=== PATIENT | male | born 1970 | race Caucasian/White ===

== ENCOUNTER 2021-03-08 18:22 | Emergency (ER) | payer OTHER, SELFPAY ==
[2021-03-08 18:42] VITALS: BP 183/84; PULSE 79; RESP 16; TEMP 36.7; O2SAT 98
[2021-03-08 19:52] VITALS: BP 179/86; PULSE 85; RESP 16; TEMP 36.4; O2SAT 98
[2021-03-08 20:06] VITALS: BP 178/80; PULSE 73; RESP 20; O2SAT 98
--- NOTE | 2021-03-08 20:19 | ED.GENADULT ---
HPI - General Adult General Chief complaint: Unspecified Stated complaint: Bleeding around dialysis port site Time Seen by Provider: 03/08/21 20:00 Source: patient History of Present Illness HPI narrative: Patient is a 50 y/o complaining of bleeding right side dialysis catheter. He states that he had tunneled right IJ catheter placed at [facility] around 3:00 PM today. He noticed it was bleeding after he got home around 5:00 PM. He also has some pain at the site. He has been on dialysis for 5 years for ESRD. Related Data Home Medications Medication Instructions Recorded Confirmed albuterol sulfate 90 mcg/actuation 1 inhalation INHALATION Q4H 08/06/19 aerosol inhaler insulin lispro 100 unit/mL 1 sliding scale dose SUB-Q 08/06/19 subcutaneous solution USEASDIRECTD ipratropium 0.5 mg-albuterol 3 mg 3 ml INHALATION QID PRN 08/06/19 (2.5 mg base)/3 mL nebulization soln lidocaine 3 % topical cream 1 applic TOPICAL BID PRN 08/06/19 pravastatin 10 mg tablet 10 mg PO DAILY 08/06/19 amlodipine 10 mg tablet 10 mg PO DAILY 08/07/19 lisinopril 10 mg tablet 20 mg PO DAILY tablet 08/07/19 Allergies Allergy/AdvReac Type Severity Reaction Status Date / Time No Known Allergies Allergy Unverified 12/04/19 08:12 Review of Systems Constitutional: Constitutional: Denies chills, Denies fever(s), Denies headache(s) and Denies weakness Eyes: Eyes: Denies blurry vision ENT: Denies headache(s) and Denies neck pain Cardiovascular: Cardiovascular: Denies chest pain and Denies dyspnea Respiratory: Respiratory: Denies cough and Denies dyspnea Gastrointestinal: Gastrointestinal: Denies abdominal pain, Denies diarrhea, Denies nausea and Denies vomiting Genitourinary: Genitourinary: Denies hematuria and Denies dysuria Musculoskeletal: Musculoskeletal: Denies back pain and Denies neck pain Integumentary/Breasts: Skin/Breast: Reports as per HPI and Reports other (bleeding from right side dialysis catheter site) Neurologic: Denies headache(s) and Denies weakness [facility] Past Medical History Medical History (Updated 03/14/21 @ 07:26 by Virgie Calzada MD) Chronic respiratory failure, unspecified whether with hypoxia or hypercapnia COPD (chronic obstructive pulmonary disease) Nocturnal hypoxemia Tracheostomy in place Family History Family History (System 12/04/19 @ 08:12 by Del Wolfe) Father Family history of chronic obstructive pulmonary disease Other Hypertension Social History Social History (System 12/04/19 @ 08:12 by Del Wolfe) Smoking status: Never smoker Exam Const: General: no acute distress and well developed Orientation/consciousness: oriented to person, oriented to place, oriented to time and patient oriented x3 HENMT: Head: normocephalic Ears: external ears normal General nose exam: Normal external nose present Eyes: General: appearance normal, both eyes and all related structures Conjunctivae: conjunctivae normal Neck: Neck: normal visual inspection and full ROM Chest: Chest palpation & inspection: normal inspection of the chest and no tenderness Resp: Effort & Inspection: normal respiratory effort Auscultation: clear to auscultation bilaterally Cardio: Rate: regular rate Rhythm: regular rhythm GI: GI Palp: No abdominal tenderness and Yes Soft to palpation Skin: General skin exam: normal color and turgor normal Other: Tunneled right IJ dialysis catheter in place with some bleeding from around catheter. Neuro: General: oriented to person, oriented to place, oriented to time and patient oriented x3 Cognition (Neuro): normal cognition Extrem: General: normal to inspection, full ROM and no pedal edema Psych: Appearance: grossly normal Mental Status: mental status grossly normal Affect: normal affect Course Reevaluation(s) Reevaluation #1: Pressure was applied to dialysis catheter site. Dressing was applied. Recheck shows no active bleeding. Date:
[2021-03-08 21:25] VITALS: BP 137/73; PULSE 88; RESP 18; O2SAT 99
== END 2021-03-08 21:27 | disposition home or self-care (01) ==
PROVIDERS: Emergency Provider Emergency Medicine; PCP Internal Medicine
DX: T82.838A Hemorrhage due to vascular prosthetic devices, implants and grafts, initial encounter (principal); J96.10 Chronic respiratory failure, unspecified whether with hypoxia or hypercapnia; J44.9 Chronic obstructive pulmonary disease, unspecified; Z79.4 Long term (current) use of insulin; Z99.2 Dependence on renal dialysis
CPT/HCPCS: 99282

== ENCOUNTER 2023-04-01 12:59 | Emergency (ER) | payer OTHER, SELFPAY ==
--- NOTE | ~2023-04-01 | XR_ITS ---
EXAMINATION: XR shoulder LT min 2V DATE: 04/01/2023 14:49 INDICATION: Severe nontraumatic left shoulder pain TECHNIQUE: AP internally and externally rotated, AP oblique externally rotated and transscapular Y vi ews of the left shoulder were obtained. COMPARISON: None FINDINGS: Normal alignment. No fracture.Acromioclavicular osteoarthritis. There is widening of the cephalad as pect of the glenohumeral joint which could be due to either the presence of a joint effusion or weakn ess or paralysis of some of the musculature of the shoulder girdle. Small lucency projecting over the soft tissues lateral to the proximal neck of the humerus raising concern for soft tissue gas in the setting of infection or necrotizing fasciitis. Surgical clips at the left axilla. Tracheostomy tube a t the thoracic inlet. Left subclavian vascular stent. Visualized portion of the left lung is clear. IMPRESSION: Slight caudal subluxation of the humeral head with respect to the glenoid with widening of the cephal ad aspect of the joint space which along with a small focus of lucent likely subcutaneous gas raises concern for infection and joint effusion and could exclude necrotizing fasciitis. Dr. Morales discus sed these findings with Dr. Lyle at 3:00 PM. Reviewed, dictated and finalized at location A. IMPRESSION: Slight caudal subluxation of the humeral head with respect to the glenoid with widening of the cephalad aspect of the joint space which along with a small foc us of lucent likely subcutaneous gas raises concern for infection and joint eff usion and could exclude necrotizing fasciitis. Dr. Morales discussed these fin dings with Dr. Lyle at 3:00 PM.
--- NOTE | ~2023-04-01 | CT_ITS ---
EXAMINATION: CT shoulder LT wo con DATE: 04/01/2023 16:17 INDICATION: Left shoulder pain and abnormal radiographs TECHNIQUE: High resolution computed tomography (CT) of the left shoulder was performed without intrav enous contrast. Additional sagittal and coronal reconstructions were performed. Automated exposure co ntrol and iterative reconstruction technique were employed. The dose-length product was 386.82 mGy-cm . COMPARISON: None FINDINGS: Moderate-sized glenohumeral joint effusion resulting in mild widening of the cephalad aspect of the g lenohumeral joint space. Bone alignment is otherwise normal. No fracture. Mild to moderate osteoarthr itis with subarticular cystlike changes at the left acromioclavicular joint. Small regions of discoid atelectasis in the left upper and lower lobes. Branching pattern of calcification suggesting a chron ic calcified bronchocele in the superior segment of the left lower lobe. Heterogeneous left thyroid m ass measuring up to 2.8 cm in diameter. Stenting of a vein in the left superior clavicular fossa. No evident soft tissue. There is a tiny intramuscular lipoma within the posterior deltoid muscle belly w hich may account for the focal lucency identified on the prior radiographs. IMPRESSION: 1. Nonspecific moderate-sized left glenohumeral joint effusion. 2. No soft tissue gas to suggest necrotizing fasciitis. The tiny lucency seen on prior radiographs ma y result from intramuscular lipoma within the posterior deltoid muscle. Reviewed, dictated and finalized at location A. IMPRESSION: 1. Nonspecific moderate-sized left glenohumeral joint effusion. 2. No soft tissue gas to suggest necrotizing fasciitis. The tiny lucency seen o n prior radiographs may result from intramuscular lipoma within the posterior d eltoid muscle.
--- NOTE | ~2023-04-01 | US_ITS ---
EXAMINATION: US venous doppler [facility] DATE: 04/01/2023 16:21 INDICATION: Left upper extremity pain TECHNIQUE: Grayscale images without and with compression and Doppler images of the left upper extremi ty veins were obtained. COMPARISON: None. FINDINGS: The left internal jugular vein, subclavian vein, axillary vein, brachial vein, basilic vein, cephalic vein, radial vein, and ulnar vein are patent. The right internal jugular and subclavian veins are al so visualized and are patent. IMPRESSION: 1. Patent left upper extremity veins. No evidence of venous thrombosis. Reviewed, dictated and finalized at location A.
[2023-04-01 13:05] VITALS: BP 137/84; PULSE 88; RESP 17; TEMP 36.4; O2SAT 99
[2023-04-01] MEDS: HYDROmorphone HCL INJ (*CRX) 1 MG/ML SYR IM (14:12)
[2023-04-01] MEDS: ONDANSETRON HCL ODT 4 MG TABLET PO (14:12)
[2023-04-01 14:14] VITALS: BP 153/93; PULSE 89; RESP 18; O2SAT 99
[2023-04-01 14:32] LABS: Basophils Absolute Auto 0.1 K/mm3 (0.0-0.1); Eosinophils Absolute Auto 0.2 K/mm3 (0-0.3); Eosinophils Percent Auto 1.4 % (0-4.4); Hematocrit 34.4 % (42.0-52.0); Hemoglobin 10.8 g/dL (14.0-18.0); Immature Granulocyte Absolute 0.15 K/mm3 (0.00-0.031); Immature Granulocyte Percent A 1.2 % (0-0.5); Lymphocytes Absolute Auto 1.18 K/mm3 (0.9-3.2); Lymphocytes Percent Auto 9.4 % (18.3-44.2); Mean Corpuscular HGB Conc 31.4 g/dl (32-36); Mean Corpuscular Hemoglobin 30.4 pg (26-34); Mean Corpuscular Volume 96.9 fl (80-100); Mean Platelet Volume 9.2 fl (7.4-10.4); Neutrophils Absolute Auto 8.9 K/mm3 (1.3-6.7); Platelet Count Result 426 k/mm3 (150-375); Red Blood Count 3.55 M/mm3 (4.6-6.20); Red Cell Distribution Width 16.7 % (11.5-14.5); White Blood Count 12.6 K/mm3 (4.5-10.0)
[2023-04-01 14:36] LABS: Prothrombin Time 13.9 Seconds (11.1-14.7)
[2023-04-01 14:37] LABS: Partial Thromboplastin Time 35.6 SECONDS (22.3-36.8)
[2023-04-01 14:46] LABS: Alanine Aminotransferase 23 U/L (6-50); Albumin Level 4.3 g/dL (3.5-5.1); Alkaline Phosphatase 186 U/L (38-126); Anion Gap 19 mmol/L (8-16); Aspartate Amino Transferase 28 U/L (17-59); Bilirubin,Total 0.7 mg/dL (0.2-1.3); Blood Urea Nitrogen 96 mg/dL (9-20); Calcium 9.3 mg/dL (8.4-10.2); Carbon Dioxide 22 mmol/L (22-30); Chloride 90 mmol/L (98-107); Estimated CRCL calculation 3 ml/min; Estimated Glomerular Filt Rate 3; Glucose 159 mg/dL (65-110); Potassium 4.3 mmol/L (3.4-5.0); Sodium 131 mmol/L (137-145)
--- NOTE | 2023-04-01 17:40 | ED.EXTPRO ---
HPI - Extremity Problem General Chief complaint: Extremity Problem,Nontraumatic Stated complaint: left sided neck and shoulder pain Time Seen by Provider: 04/01/23 13:45 Source: patient, RN notes reviewed and old records reviewed Mode of arrival: ambulatory Limitations: no limitations History of Present Illness HPI Narrative: This is a 52 year old male with history of chronic renal disease on dialysis, DM, tracheostomy in place who presents for evaluation of left shoulder pain. He noticed pain 1 week ago. He reports pain to left shoulder and radiating down to his elbow. He also also noticed pain at old left upper extremity dialysis site. He has been trying to physical therapy at home. He states today he was unable to lift his left shoulder due to pain. He denies fever, chills, injury. He reports history of left shoulder issues. He took an old oxycodone prior to arrival without relief. MD Complaint: extremity pain Onset (ago): week(s) Pain Consistency: constant Location: left and upper extremity Severity scale (1-10): 9 Relieving factors: medication Exacerbating factors: range of motion Related Data Home Medications Medication Instructions Recorded Confirmed albuterol sulfate 90 mcg/actuation 1 inhalation inhalation Q4H 08/06/19 02/15/22 aerosol inhaler (ProAir HFA) insulin lispro 100 unit/mL 1 sliding scale dose subcut 08/06/19 02/15/22 subcutaneous solution (Humalog USEASDIRECTD U-100 Insulin) pravastatin 10 mg tablet 10 mg PO DAILY 08/06/19 02/15/22 amlodipine 10 mg tablet 10 mg PO DAILY 08/07/19 02/15/22 furosemide 20 mg tablet 10 mg PO QAM 11/22/21 02/15/22 subcutaneous insulin pump 11/22/21 02/15/22 blood-glucose meter,continuous #1 ea 01/30/22 02/15/22 (Dexcom G6 Anesthesiology Medical Doctor) blood-glucose transmitter (Dexcom #1 ea 01/30/22 02/15/22 G6 Transmitter device) gentamicin 0.1 % topical cream g topical 01/30/22 02/15/22 Allergies Allergy/AdvReac Type Severity Reaction Status Date / Time amoxicillin [From Augmentin] Allergy Swelling Verified 04/01/23 14:11 azithromycin Allergy Swelling Verified 04/01/23 14:11 clavulanic acid Allergy Swelling Verified 04/01/23 14:11 [From Augmentin] Review of Systems Constitutional: Constitutional: Denies weakness Cardiovascular: Cardiovascular: Denies syncope, Denies rapid heart rate, Denies irregular heart rhythm, Denies leg edema and Denies dyspnea Respiratory: Respiratory: Denies chest congestion, Denies hemoptysis, Denies excessive phlegm production and Denies dyspnea Gastrointestinal: Gastrointestinal: Denies abdominal pain, Denies hematochezia, Denies diarrhea and Denies vomiting Genitourinary: Genitourinary: Denies hematuria, Denies dysuria, Denies penile discharge and Denies testicular pain Musculoskeletal: Musculoskeletal: Reports arthralgias, Denies joint swelling, Denies loss of height and Denies muscle weakness Neurologic: Denies syncope, Denies focal weakness and Denies weakness PMFSH Past Medical History Medical History (Updated 04/01/23 @ 21:27 by Lauren Lyle MD) Chronic respiratory failure, unspecified whether with hypoxia or hypercapnia COPD (chronic obstructive pulmonary disease) ESRD on dialysis Nocturnal hypoxemia Surgical History Surgical History (Updated 04/01/23 @ 17:44 by Lauren Lyle MD) Tracheostomy in place Family History Family History Father Family history of chronic obstructive pulmonary disease Other Hypertension Social History Social History Smoking status: Never smoker Alcohol intake: never Substance use: never Exam Const: General: no acute distress and alert Nutritional Appearance: well nourished Orientation/consciousness: patient oriented x3 HENMT: Head: normal to inspection Mouth: Yes Normal oral and palatal mucosa present, Yes lip normal and Yes moist muco
[2023-04-01 18:09] LABS: CRP 14.5 mg/dL (<1.0)
[2023-04-01 18:24] LABS: Erythrocyte Sedimentation Rate > 140 mm/hr (0-20)
[2023-04-01 18:44] VITALS: BP 139/78; PULSE 86; RESP 16; TEMP 36.9; O2SAT 100
[2023-04-01 21:08] LABS: Source Synovial Fluid Synovial fluid
[2023-04-01 21:16] LABS: Appearance Synovial Fluid Cloudy (Clear); Color Synovial Fluid Red (Colorless)
[2023-04-01 21:17] LABS: Lymphocytes Synovial Fluid 1 %; Monocytes Synovial Fluid 3 %; Neutrophils Synovial Fluid 96 % (0-25); RBC Synovial Fluid 20000 /uL (0-0)
[2023-04-01 21:22] LABS: Crystals Synovial Fluid None Seen (None Seen)
[2023-04-05 20:29] LABS: Glucose Synovial Fluid 27 mg/dL
== END 2023-04-01 19:53 | disposition home or self-care (01) ==
PROVIDERS: Emergency Provider General Practice
DX: M25.412 Effusion, left shoulder (principal); J44.9 Chronic obstructive pulmonary disease, unspecified; N18.6 End stage renal disease; Z99.2 Dependence on renal dialysis
CPT/HCPCS: 20610; 36415; 73030; 73200; 80053; 82945; 84157; 85025; 85610; 85652; 85730; 86140; 87070; 87075; 87205; 89051; 89060; 93971; 96372; 99283; A4565; A9270; J1170

== ENCOUNTER 2023-05-09 13:55 | Outpatient (CLI) | payer OTHER, SELFPAY ==
--- NOTE | ~2023-05-09 | CT_ITS ---
EXAMINATION: CT sinus wo con DATE: 05/09/2023 14:12 INDICATION: Chronic sinusitis TECHNIQUE: Computed tomography (CT) of the paranasal sinuses was performed without intravenous contra st. The dose-length product was 286.08 mGy-cm. Automated exposure control and iterative reconstructio n technique were employed. COMPARISON: None FINDINGS: Rightward nasal septal deviation. No significant mucosal thickening. No mucoperiosteal reac tion. Ostiomeatal units are patent. Mastoids are pneumatized. IMPRESSION: 1. No significant sinus disease. Reviewed, dictated and finalized at location B. ICAL ACCOUNT MANAGER
== END 2023-05-09 13:56 | disposition home or self-care (01) ==
PROVIDERS: Visit Provider Otolaryngology
DX: J32.9 Chronic sinusitis, unspecified (principal)
CPT/HCPCS: 70486

== ENCOUNTER 2023-06-16 10:47 | Inpatient (IN) | payer OTHER, SELFPAY ==
[2023-06-16] VITALS (30 sets, daily range): BP systolic 134–148; BP diastolic 72–87; PULSE 85–105; RESP 12–37; TEMP 36.4–36.6; O2SAT 88–100; BMI 20.2
--- NOTE | ~2023-06-16 | XR_ITS ---
EXAMINATION: XR chest 1V portable DATE: 06/16/2023 12:33 INDICATION: Shortness of breath. TECHNIQUE: A single frontal view of the chest was obtained. COMPARISON: Chest 2 views 11/06/2017, left shoulder CT 04/01/2023, chest CT 10/04/2017 FINDINGS: There are coarse interstitial opacities in the mid and lower lung zones, left worse than ri ght. No pleural effusion or pneumothorax. The heart size is normal. A tracheostomy tube is noted. A v ascular stent overlies left upper chest. There are surgical clips in left axilla. There is an old hea led left rib fracture. A gastrostomy tube is noted. IMPRESSION: 1. Coarse interstitial opacities in the mid and lower lung zones, left worse than right, consistent w ith atelectasis/scarring versus pneumonia. Reviewed, dictated and finalized at location A. T BUYER IMPRESSION: 1. Coarse interstitial opacities in the mid and lower lung zones, left worse th an right, consistent with atelectasis/scarring versus pneumonia.
--- NOTE | 2023-06-16 11:55 | ED.GENADULT ---
HPI - General Adult General Chief complaint: Shortness of Breath/Dyspnea Stated complaint: uri Time Seen by Provider: 06/16/23 11:43 History of Present Illness HPI narrative: 53-year-old male presenting to the emergency department for evaluation of increased cough congestion and shortness of breath. Patient noticed on Sunday that he was having increased shortness of breath and patient checked his pulse ox and his mother's house and found he had a oxygen saturation of 81%. Patient is not normally on oxygen. Patient does have a trach that has been in place for the last 5 years. She does do trach suction and patient states he has had increased clearish to greenish tinged sputum. Patient denies any fevers and states he does not feel ill but states that he does feels short of breath with ambulation. Patient's trach is capped. Related Data Home Medications Medication Instructions Recorded Confirmed albuterol sulfate 90 mcg/actuation 1 inhalation inhalation Q4H 08/06/19 06/16/23 aerosol inhaler (ProAir HFA) insulin lispro 100 unit/mL 1 sliding scale dose subcut 08/06/19 06/16/23 subcutaneous solution (Humalog USEASDIRECTD U-100 Insulin) pravastatin 10 mg tablet 10 mg PO DAILY 08/06/19 06/16/23 amlodipine 10 mg tablet 10 mg PO DAILY 08/07/19 06/16/23 subcutaneous insulin pump 11/22/21 06/16/23 blood-glucose meter,continuous #1 ea 01/30/22 06/16/23 (Dexcom G6 Dough Maker) blood-glucose transmitter (Dexcom #1 ea 01/30/22 06/16/23 G6 Transmitter device) amlodipine 5 mg tablet 5 mg PO DAILY 06/16/23 06/16/23 calcitriol 0.25 mcg capsule 0.25 mcg PO DIRECTED 06/16/23 06/16/23 fluconazole 150 mg tablet 150 mg PO DIRECTED 06/16/23 06/16/23 fluticasone propionate 50 See Rx Instructions .Route 06/16/23 06/16/23 mcg/actuation nasal .COMPLEX PRN Congestion spray,suspension furosemide 80 mg tablet 80 mg PO BID 06/16/23 06/16/23 lactulose 10 gram/15 mL oral 15 ml PO PRN constipation 06/16/23 06/16/23 solution sevelamer carbonate 800 mg tablet 800 mg PO TIDWM 06/16/23 06/16/23 Allergies Allergy/AdvReac Type Severity Reaction Status Date / Time levofloxacin [From Levaquin] Allergy Severe jerking Verified 06/16/23 10:55 motions amoxicillin [From Augmentin] Allergy Swelling Verified 06/16/23 10:55 azithromycin Allergy Swelling Verified 06/16/23 10:55 clavulanic acid Allergy Swelling Verified 06/16/23 10:55 [From Augmentin] doxycycline AdvReac Severe Vomiting Verified 06/16/23 13:03 Review of Systems Review of Systems: All systems reviewed & are unremarkable except as noted in HPI and below PMFSH Past Medical History Medical History Chronic obstructive pulmonary disease Chronic respiratory failure, unspecified whether with hypoxia or hypercapnia End stage renal disease on dialysis Hypertension Nocturnal hypoxemia Tracheobronchomalacia Type 1 diabetes mellitus Surgical History Surgical History History of bilateral cataract extraction History of tracheostomy Status post creation of arteriovenous fistula Family History Family History Father Family history of chronic obstructive pulmonary disease Other Hypertension Social History Social History Social History: Surrogate medical decision maker: Rowena Mendoza, mother. Code status: Full code. Smoking status: Never smoker Alcohol intake: never Substance use: never Do You Feel Safe in your Home?: Yes Lack of Transportation: No Lack of Food: Never True Current Housing: I Have Housing Concerned About Future Housing: No Difficulty Paying Gas/Electric Bills: No Difficulty Paying for Meds: No Currently Unemployed: No Education: High School Diploma/GED Difficulty w/ Childcare or Family C
[2023-06-16] MEDS: ALBUTEROL SULFATE NEB 2.5 MG/3 ML INH 5 MG INHALATION (12:01)
--- NOTE | 2023-06-16 12:03 | PC.NURSE ---
RT at bedside suctioning pt's trach. Thick, cream-colored output with suctioning. Pt on 3L NC, chronic bivona trach. Pt has expiratory wheezing and coarse lung sounds. Plan for breathing treatment, x-ray, labs. Pt updated on POC.
[2023-06-16 12:24] LABS: Basophils Absolute Auto 0.1 K/mm3 (0.0-0.1); Basophils Percent Auto 0.5 % (0.2-1.2); Eosinophils Absolute Auto 0.2 K/mm3 (0-0.3); Eosinophils Percent Auto 0.7 % (0-4.4); Hematocrit 35.3 % (42.0-52.0); Hemoglobin 10.7 g/dL (14.0-18.0); Immature Granulocyte Absolute 0.35 K/mm3 (0.00-0.031); Immature Granulocyte Percent A 1.4 % (0-0.5); Lymphocytes Absolute Auto 1.07 K/mm3 (0.9-3.2); Lymphocytes Percent Auto 4.4 % (18.3-44.2); Mean Corpuscular HGB Conc 30.3 g/dl (32-36); Mean Corpuscular Hemoglobin 31.4 pg (26-34); Mean Corpuscular Volume 103.5 fl (80-100); Mean Platelet Volume 8.6 fl (7.4-10.4); Monocytes Absolute Auto 1.5 K/mm3 (0.1-0.6); Monocytes Percent Auto 6.3 % (2.6-8.5); Neutrophils Percent Auto 86.7 % (45.5-73.1); Platelet Count Result 514 k/mm3 (150-375); Red Blood Count 3.41 M/mm3 (4.6-6.20); Red Cell Distribution Width 14.4 % (11.5-14.5); White Blood Count 24.2 K/mm3 (4.5-10.0)
[2023-06-16 12:37] LABS: Alanine Aminotransferase 23 U/L (6-50); Albumin Level 4.2 g/dL (3.5-5.1); Alkaline Phosphatase 208 U/L (38-126); Anion Gap 21 mmol/L (8-16); Aspartate Amino Transferase 28 U/L (17-59); Blood Urea Nitrogen 66 mg/dL (9-20); Calcium 9.2 mg/dL (8.4-10.2); Carbon Dioxide 24 mmol/L (22-30); Chloride 93 mmol/L (98-107); Glucose 179 mg/dL (65-110); Potassium 3.6 mmol/L (3.4-5.0); Sodium 138 mmol/L (137-145)
[2023-06-16 12:40] LABS: Influenza A QL RT-PCR Negative (Negative); Influenza B QL RT-PCR Negative (Negative); RSV RNA, RT-PCR Negative (Negative); SARS-CoV-2 RNA PCR Negative (Negative)
[2023-06-16 12:43] LABS: Estimated CRCL calculation 3 ml/min; Estimated Glomerular Filt Rate 3
[2023-06-16] MEDS: MEROPENEM 1 GM/NS 100 ML 1 GM/100 ML BAG IVPB ×2 (14:24→17:50)
[2023-06-16 14:29] LABS: MRSA (PCR) NOT DETECTED (NOT DETECTE)
--- NOTE | 2023-06-16 14:38 | PM.IMHP ---
H&P: HPI History of Present Illness Date/Time: 06/16/23 15:00 Chief Complaint: Shortness of breath and green drainage from tracheostomy. Narrative: This is a 53-year-old male with tracheobronchomalacia with chronic tracheostomy, questionable chronic obstructive pulmonary disease (patient unsure if he carries this diagnosis, he is a never smoker), type 1 diabetes mellitus, end stage renal disease on peritoneal dialysis, hypertension, hyperlipidemia, and chronic anemia who presented to the emergency department for evaluation of shortness of breath and green drainage from tracheostomy. The patient provides the following history. He has a chronic cough and tracheostomy output although both of them have been worse in the several days. He is now suctioning large amounts thick yellow sputum from his tracheostomy and he endorses increasing dyspnea on lesser and lesser exertion. He has nebulizers at home which he has not used for 6 years but he finally had to breakdown and use them due to the shortness of breath and wheezing. His appetite has been down. He also denies fever, chills, sweats, sore throat, chest pain, pleuritic pain, palpitations, nausea, vomiting, and diarrhea. This morning he checked his pulse ox at his mother's house and he reports that his oxygen saturation was 81% on room air and he came in for evaluation. In the ED: He was afebrile on arrival. SpO2 is currently in the mid 90s on 3 L nasal cannula. Vital signs have been stable. Labs were significant for a WBC count of 24.2, hemoglobin 10.7, platelet 514, BUN 66, creatinine 16.50, glucose 179. He tested negative for influenza, RSV, and COVID. Chest x-ray showed coarse interstitial opacities in the mid and lower lung zones, left greater than right, consistent with atelectasis/scarring versus pneumonia. He was given albuterol nebulizer, 1 g meropenem, and 750 mg vancomycin he is being admitted in this setting for further treatment. Review of Systems Review of Systems: Twelve systems were reviewed and are negative except for as per HPI. [facility] Past Medical History Medical History Chronic obstructive pulmonary disease Chronic respiratory failure, unspecified whether with hypoxia or hypercapnia End stage renal disease on dialysis Hypertension Nocturnal hypoxemia Tracheobronchomalacia Type 1 diabetes mellitus Surgical History Surgical History History of bilateral cataract extraction History of tracheostomy Status post creation of arteriovenous fistula Family History Family History Father Family history of chronic obstructive pulmonary disease Other Hypertension Social History Social History Social History: Surrogate medical decision maker: Rowena Mendoza, mother. Code status: Full code. Smoking status: Never smoker Alcohol intake: never Substance use: never Lack of Transportation: No Lack of Food: Never True Current Housing: I Have Housing Concerned About Future Housing: No Difficulty Paying Gas/Electric Bills: No Difficulty Paying for Meds: No Currently Unemployed: No Education: High School Diploma/GED Difficulty w/ Childcare or Family Care: No Additional living arrangements comments: . Has 4 children. Meds Home Medications and Allergies Home Medications Medication Instructions Recorded Confirmed Type albuterol sulfate 90 mcg/actuation 1 inhalation inhalation Q4H 08/06/19 05/02/23 History aerosol inhaler (ProAir HFA) insulin lispro 100 unit/mL 1 sliding scale dose subcut 08/06/19 05/02/23 History subcutaneous solution (Humalog USEASDIRECTD U-100 Insulin) pravastatin 10 mg tablet 10 mg PO DAILY 08/06/19 05/02/23 History amlodipine 10 mg tablet 10 mg PO DAILY 08/07/19 05/02/23 Hi
--- NOTE | 2023-06-16 15:02 | PM.CNNEP ---
Assessment and Plan Assessment and plan (1) End stage renal disease: Code(s): N18.6 - End stage renal disease Status: Chronic Assessment and Plan: resume CCPD tonight follow electrolytes, volume status, and clearance (2) Acute respiratory failure with hypoxia: Code(s): J96.01 - Acute respiratory failure with hypoxia Status: Acute Assessment and Plan: hypoxia noted at home via pulse oximetry requiring 3L supplemental oxygen to keep oxygen saturations at goal presumably due to pneumonia (see #3) wean oxygen as tolerated with ongoing therapy follow respiratory status (3) Pneumonia: Code(s): J18.9 - Pneumonia, unspecified organism Status: Acute Assessment and Plan: as noted by symptoms of cough, SOB, and increased tracheostomy discharge/secreations follow culture data on antibiotics (4) Hypertension: Code(s): I10 - Essential (primary) hypertension Status: Chronic Assessment and Plan: reasonable control at this time follow trend of hemodynamics with current medications (5) Anemia: Code(s): D64.9 - Anemia, unspecified Status: Chronic Assessment and Plan: due to ESRD follow trend of H/H likely to need Epogen while hospitalized (6) Type 1 diabetes mellitus: Code(s): E10.9 - Type 1 diabetes mellitus without complications Status: Acute Assessment and Plan: on insulin pump follow accu-cheks further glycemic control per hospitalists I will continue follow patient with you while remains hospitalized make further recommendations as needed. Thank you for allowing me to participate in the care of this patient.. History of Present Illness Reason for Consult Consult date: 06/16/23 Reason for consult: end stage renal disease Chief Complaint Chief complaint: Pneumonia, Hypoxia History of Present Illness Narrative: The patient is a 53-year-old male with a past medical history as outlined below who presented to [facility] Emergency Room for further evaluation of shortness of breath, hypoxia, and green/yellow sputum from his tracheostomy. The patient notes that his chronic cough and tracheostomy output in the last several days have been worse than his usual baseline. He reports suctioning large amounts of thick yellow/green sputum from his tracheostomy in the last several days in association with worsening shortness of breath/dyspnea particularly with exertional activities. He apparently started using his home nebulizer machine due to his complaints of shortness of breath but states that he has not used them in almost 6 years. He reports audible wheezing in conjunction with his shortness of breath that led to his decision to start using his home nebulizer machine. Other associated symptoms included decreased oral intake and generalized weakness. He reports no overt fevers, chills, diaphoresis, chest pain, palpitations, nausea, vomiting, dizziness, or lightheadedness. apparently, he checked his pulse oximetry at his mother's house earlier today which demonstrated a reading of 81% on room air. Given his constellation of symptoms as well as this new finding of hypoxia, he came to the ER for further assessment Workup and evaluation emergency room demonstrated the patient be hemodynamically stable and afebrile. He was noted to require 3 L of supplemental oxygen by nasal cannula to keep his oxygen saturations in the mid 90s. Routine blood test demonstrated a CBC with elevated white blood cell count of 24.2, anemia likely secondary to his end-stage renal disease and a chemistry that was consistent with his known history of end-stage renal disease as well with no critical electrolyte abnormalities. Testing for influenza, RSV, and COVID were negative. His chest x-ray showed coarse interstitial opacities in the mid and lower lung zones left greater than right consistent with atelectasis/scarring v
[2023-06-16] MEDS: VANCOMYCIN 750 MG/NS 250 ML BAG 250 MG IVPB (15:22)
--- NOTE | 2023-06-16 16:24 | ADMGEN ---
This patient, Hao Mendoza, was admitted to IMU Room 204-01. Patient/family oriented to hospital policies and general routines including ID bracelet, bed and alarms, visiting hours, pain management, procedures, bathroom and other care routines, personal items, smoking policy, room service/diet, and visiting hours. Information on how to activate the Rapid Response Team has been discussed. Patient/Family are encouraged to report perceived risks to care and to ask questions if they do not understand what they are told or what they should do.
[2023-06-16] MEDS: ACETAMINOPHEN 325 MG TABLET 650 MG PO (19:58)
[2023-06-16] MEDS: guaiFENesin 12 HR 600 MG TABCR PO (19:59)
[2023-06-16] MEDS: IPRATROPIUM BR 0.02% INH SOLN 0.5 MG/2.5 ML VIAL INHALATION (20:49)
[2023-06-16] MEDS: LEVALBUTEROL NEB 1.25 MG/3 ML INHALATION (20:50)
[2023-06-16] MEDS: HEPARIN SODIUM 5,000 UNITS/ML VIAL 5000 UNITS SUB-Q (21:00)
[2023-06-17] VITALS (29 sets, daily range): BP systolic 112–150; BP diastolic 63–84; PULSE 82–113; RESP 14–24; TEMP 36.2–37.1; O2SAT 92–100
[2023-06-17] MEDS: IPRATROPIUM BR 0.02% INH SOLN 0.5 MG/2.5 ML VIAL INHALATION ×4 (03:04→19:55)
[2023-06-17] MEDS: LEVALBUTEROL NEB 1.25 MG/3 ML INHALATION ×4 (03:04→19:55)
[2023-06-17 04:52] LABS: Hematocrit 31.3 % (42.0-52.0); Hemoglobin 9.8 g/dL (14.0-18.0); Mean Corpuscular HGB Conc 31.3 g/dl (32-36); Mean Corpuscular Volume 102.3 fl (80-100); Platelet Count Result 472 k/mm3 (150-375); Red Blood Count 3.06 M/mm3 (4.6-6.20); Red Cell Distribution Width 14.4 % (11.5-14.5); White Blood Count 22.2 K/mm3 (4.5-10.0)
[2023-06-17 05:17] LABS: Alanine Aminotransferase 20 U/L (6-50); Albumin Level 3.5 g/dL (3.5-5.1); Alkaline Phosphatase 174 U/L (38-126); Anion Gap 18 mmol/L (8-16); Aspartate Amino Transferase 18 U/L (17-59); Blood Urea Nitrogen 64 mg/dL (9-20); Carbon Dioxide 23 mmol/L (22-30); Chloride 93 mmol/L (98-107); Estimated CRCL calculation 4 ml/min; Estimated Glomerular Filt Rate 3; Glucose 347 mg/dL (65-110); Potassium 4.1 mmol/L (3.4-5.0); Sodium 134 mmol/L (137-145)
[2023-06-17] MEDS: ACETAMINOPHEN 325 MG TABLET 650 MG PO ×2 (05:32→20:07)
--- NOTE | 2023-06-17 05:44 | ECG_ITS ---
Measurements Intervals [place] Rate: 92 P: 76 VA: 151 QRS: -26 QRSD: 96 T: 99 QT: 354 QTc: 438 Interpretive Statements SINUS RHYTHM BORDERLINE LEFT AXIS DEVIATION [QRS AXIS < -20] LOW QRS VOLTAGE IN EXTREMITY LEADS [QRS DEFLECTION < 0.5 mV IN LIMB LEADS] NONSPECIFIC T-WAVE ABNORMALITY NO PREVIOUS ECG AVAILABLE FOR COMPARISON Electronically Signed On 06-17-2023 15:09:57 [employer] by Mariluz Peña M.D.
[2023-06-17] MEDS: CALCIUM CARBONATE (TUMS) 500 MG (200 MG ELEMENTAL) PO (06:28)
[2023-06-17 07:29] LABS: Folic Acid 15.2 ng/mL (2.76->20)
--- NOTE | 2023-06-17 08:12 | PM.IMPN ---
Progress Note: A&P Assessment and Plan (1) Pneumonia: Code(s): J18.9 - Pneumonia, unspecified organism Status: Acute Assessment and Plan: Patient reports increasing cough, shortness of breath, and increasing output from his tracheostomy site. Continue meropenem and vancomycin initiated 06/16 for broad-spectrum coverage, pending cultures. Check Legionella and pneumococcal antigens as well as mycoplasma IgM. 06/17: Leukocytosis improving, continue current management (2) Acute respiratory failure with hypoxia: Code(s): J96.01 - Acute respiratory failure with hypoxia Status: Acute Assessment and Plan: Patient reports that his SpO2 was 81% on a home pulse oximeter. Currently on 3 L nasal cannula with an SpO2 in the high 90s. Secondary to below; wean oxygen as tolerated. Pulmonary embolism seems less likely by history and physical exam findings. (3) End stage renal disease on dialysis: Code(s): N18.6 - End stage renal disease; Z99.2 - Dependence on renal dialysis Status: Acute Assessment and Plan: Dr. Burrows consulted for peritoneal dialysis orders. He is euvolemic with no electrolyte abnormalities. (4) Chronic obstructive pulmonary disease: Code(s): J44.9 - Chronic obstructive pulmonary disease, unspecified Status: Acute Assessment and Plan: Patient is not certain if he carries this diagnosis; states he was never a smoker. Continue scheduled bronchodilators. Declines steroids at this time though may benefit given wheezing. (5) Type 1 diabetes mellitus: Code(s): E10.9 - Type 1 diabetes mellitus without complications Status: Acute Assessment and Plan: Continue basal insulin via insulin pump. Initiate hypoglycemic protocol. Blood glucose reviewed 06/17 (6) Hypertension: Code(s): I10 - Essential (primary) hypertension Status: Chronic Assessment and Plan: Blood pressures were reviewed and they are stable. Continue antihypertensives and monitor closely. Blood pressures reviewed 06/17 Plan DVT prophylaxis with heparin GI prophylaxis not indicated Code status full code Subjective Date/time seen: 06/17/23 08:12 Interval history: 53-year-old male with chronic trach, diabetes, end-stage renal disease on hemodialysis presenting with shortness of breath drainage from his trach and currently being treated for pneumonia. No overnight events noted. No nausea, vomiting or diarrhea. No fevers or chills. Still with some chest pain, mainly chest wall tenderness. Also somewhat short of breath, improved. Review of Systems Review of Systems: 12 point review of systems was assessed and was negative except as noted in the HPI Exam Narrative: General: No acute distress, alert and oriented per baseline HEENT: Atraumatic, normocephalic, mucous membranes moist CV: Regular rate and rhythm, S1, S2 Lungs: Coarse breath sounds throughout, no wheeze Abdomen: Soft, nontender, nondistended Extremities: Normal to inspection Skin: No rashes noted, no lesions or wounds seen Psych: Euthymic, normal affect Objective Data Vital Signs Vital Signs: Vital Signs - 24 hr 06/16/23 10:52 06/16/23 12:04 06/16/23 13:10 Temperature 97.9 F Pulse Rate 96 94 Respiratory Rate 17 12 Blood Pressure 142/76 H Pulse Oximetry 93 94 Oxygen Delivery Nasal Cannula Nasal Cannula Oxygen Flow Rate 2 3 06/16/23 11:48 06/16/23 12:00 06/16/23 12:01 Temperature Pulse Rate 95 96 96 Respiratory Rate 29 H 18 26 H Blood Pressure 134/87 Pulse Oximetry 95 96 97 Oxygen Delivery Oxygen Flow Rate 06/16/23 12:15 06/16/23 12:31 06/16/23 12:45 Temperature Pulse Rate 96 97 98 Respiratory Rate 24 H 18 18 Blood Pressure Pulse Oximetry 100 93 94 Oxygen Delivery Oxygen Flow Rate 06/16/23 13:00 06/16/23 13:15 06/16/23 13:30 Temperature Pulse Rate 97 95 93 Respirat
[2023-06-17 08:28] LABS: Glucose Point of Care 297 mg/dl (65-105)
[2023-06-17] MEDS: amLODIPine BESYLATE 5 MG TABLET 10 MG PO (09:54)
[2023-06-17] MEDS: amLODIPine BESYLATE 5 MG TABLET PO (09:54)
[2023-06-17] MEDS: PRAVASTATIN SODIUM 10 MG TABLET PO (09:55)
[2023-06-17] MEDS: SEVELAMER CARBONATE 800 MG TABLET PO ×3 (09:55→16:24)
[2023-06-17] MEDS: HEPARIN SODIUM 5,000 UNITS/ML VIAL 5000 UNITS SUB-Q ×2 (09:56→20:11)
[2023-06-17] MEDS: FUROSEMIDE 80 MG TABLET PO ×2 (09:56→16:24)
[2023-06-17] MEDS: VITAMIN B CMPLX/VIT C/FOLIC AC 1 CAPSULE 1 CAP PO (09:56)
[2023-06-17] MEDS: guaiFENesin 12 HR 600 MG TABCR PO ×2 (09:56→20:07)
--- NOTE | 2023-06-17 10:01 | P.PNNP_ITS ---
Progress Note: A&P Assessment and Plan (1) End stage renal disease: Code(s): N18.6 - End stage renal disease Status: Chronic Assessment and Plan: * continue nightly CCPD * follow electrolytes, volume status, and clearance * follows with Dr. Burrows at [facility] (2) Acute respiratory failure with hypoxia: Code(s): J96.01 - Acute respiratory failure with hypoxia Status: Acute Assessment and Plan: * hypoxia noted at home via pulse oximetry * requiring 2 - 3L supplemental oxygen to keep oxygen saturations at goal * presumably due to pneumonia (see #3) * wean oxygen as tolerated with ongoing therapy * follow respiratory status (3) Pneumonia: Code(s): J18.9 - Pneumonia, unspecified organism Status: Acute Assessment and Plan: * as noted by symptoms of cough, SOB, and increased tracheostomy discharge /secreations * follow culture data and WBC * on antibiotics (4) Hypertension: Code(s): I10 - Essential (primary) hypertension Status: Chronic Assessment and Plan: * reasonable control at this time * follow trend of hemodynamics with current medications (5) Anemia: Code(s): D64.9 - Anemia, unspecified Status: Chronic Assessment and Plan: * due to ESRD * follow trend of H/H * start Epogen while hospitalized (6) Type 1 diabetes mellitus: Code(s): E10.9 - Type 1 diabetes mellitus without complications Status: Acute Assessment and Plan: * on insulin pump * follow accu-cheks * further glycemic control per hospitalists Will continue to follow Subjective Date/time seen: 06/17/23 10:01 Interval history: Follow-up for end stage renal disease on peritoneal dialysis. Tolerated peritoneal dialysis treatment overnight without any significant issues or problems other than a sensation of bloating -- stable hemodynamics and respiratory status appears stable if not a bit better; no other acute complaints voiced at the time of my visit. Exam Narrative: General: thin and chronicallly ill-appearing male in NAD Heart: normal S1 and S2; no rub Lungs: coarse breath sounds; no wheezing Abdomen: soft, nontender, nondistended, positive bowel sounds Extremities: no cyanosis or clubbing; no edema Skin: warm and dry Objective Data Vital Signs Vital Signs: Vital Signs Temp Pulse Resp BP Pulse Ox O2 Del Method O2 Flow Rate 06/17/23 10:00 98 06/17/23 08:00 92 14 100 Nasal Cannula 3 06/17/23 07:45 95 18 06/17/23 07:35 91 18 06/17/23 07:35 91 18 94 Nasal Cannula 2 06/17/23 07:58 97.8 F 92 14 134/84 100 06/17/23 06:41 96 Nasal Cannula 2 06/17/23 06:00 92 06/17/23 05:27 98.0 F 93 24 H 129/78 95 06/17/23 03:18 105 H 16 06/17/23 03:05 107 H 16 06/16/23 21:03 93 16 06/16/23 20:50 93 Nasal Cannula 2 06/16/23 20:50 97 16 06/17/23 04:00 92 06/17/23 02:00 82 06/17/23 01:01 97.1 F L 96 24 H 112/75 95 06/17/23 00:00 93 06/16/23 22:00 85 06/16/23 20:00 100 06/16/23 20:00 97.7 F 97 24 H 136/72 100 06/16/23 19:15 97.5 F L 100 24 H 148/76 H Room Air
--- NOTE | 2023-06-17 10:01 | PM.PNNEP ---
Progress Note: A&P Assessment and Plan (1) End stage renal disease: Code(s): N18.6 - End stage renal disease Status: Chronic Assessment and Plan: continue nightly CCPD follow electrolytes, volume status, and clearance follows with Dr. Burrows at [facility] (2) Acute respiratory failure with hypoxia: Code(s): J96.01 - Acute respiratory failure with hypoxia Status: Acute Assessment and Plan: hypoxia noted at home via pulse oximetry requiring 2 - 3L supplemental oxygen to keep oxygen saturations at goal presumably due to pneumonia (see #3) wean oxygen as tolerated with ongoing therapy follow respiratory status (3) Pneumonia: Code(s): J18.9 - Pneumonia, unspecified organism Status: Acute Assessment and Plan: as noted by symptoms of cough, SOB, and increased tracheostomy discharge/secreations follow culture data and WBC on antibiotics (4) Hypertension: Code(s): I10 - Essential (primary) hypertension Status: Chronic Assessment and Plan: reasonable control at this time follow trend of hemodynamics with current medications (5) Anemia: Code(s): D64.9 - Anemia, unspecified Status: Chronic Assessment and Plan: due to ESRD follow trend of H/H start Epogen while hospitalized (6) Type 1 diabetes mellitus: Code(s): E10.9 - Type 1 diabetes mellitus without complications Status: Acute Assessment and Plan: on insulin pump follow accu-cheks further glycemic control per hospitalists Will continue to follow Subjective Date/time seen: 06/17/23 10:01 Interval history: Follow-up for end stage renal disease on peritoneal dialysis. Tolerated peritoneal dialysis treatment overnight without any significant issues or problems other than a sensation of bloating -- stable hemodynamics and respiratory status appears stable if not a bit better; no other acute complaints voiced at the time of my visit. Exam Narrative: General: thin and chronicallly ill-appearing male in NAD Heart: normal S1 and S2; no rub Lungs: coarse breath sounds; no wheezing Abdomen: soft, nontender, nondistended, positive bowel sounds Extremities: no cyanosis or clubbing; no edema Skin: warm and dry Objective Data Vital Signs Vital Signs: Vital Signs Temp Pulse Resp BP Pulse Ox O2 Del Method O2 Flow Rate 06/17/23 10:00 98 06/17/23 08:00 92 14 100 Nasal Cannula 3 12/31/23 07:45 95 18 06/17/23 07:35 91 18 06/17/23 07:35 91 18 94 Nasal Cannula 2 06/17/23 07:58 97.8 F 92 14 134/84 100 06/17/23 06:41 96 Nasal Cannula 2 06/17/23 06:00 92 06/17/23 05:27 98.0 F 93 24 H 129/78 95 06/17/23 03:18 105 H 16 06/17/23 03:05 107 H 16 06/16/23 21:03 93 16 06/16/23 20:50 93 Nasal Cannula 2 06/16/23 20:50 97 16 06/17/23 04:00 92 06/17/23 02:00 82 06/17/23 01:01 97.1 F L 96 24 H 112/75 95 06/17/23 00:00 93 06/16/23 22:00 85 06/16/23 20:00 100 06/16/23 20:00 97.7 F 97 24 H 136/72 100 06/16/23 19:15 97.5 F L 100 24 H 148/76 H Room Air 06/16/23 18:00 99 06/16/23 16:51 97.5 F L 100 24 H 148/76 H 94 06/16/23 16:15 99 26 H 96 06/16/23 16:00 99 25 H 95 06/16/23 15:45 100 22 H 06/16/23 15:30 97 25 H 95 06/16/23 15:15 103 H 20 96 06/16/23 15:00 100 28 H 94 06/16/23 14:45 99 25 H 93 Intake/Output Intake/Output: Intake & Output 06/14/23 06/15/23 06/16/23 06/17/23 23:59 23:59 23:59 23:59 Intake Total 770 750 Output Total 0 98 Balance 770 652 Meds/Results Medications: Active Medications Generic Name Dose Route Start Last Admin Trade Name Freq PRN Reason Stop Dose Admin Acetaminophen 650 mg 06/16/23 16:21 06/17/23 05:32 Acetaminophen
--- NOTE | 2023-06-17 11:14 | ECG_ITS ---
Measurements Intervals [place] Rate: 106 P: 75 VA: 149 QRS: -33 QRSD: 88 T: 96 QT: 321 QTc: 428 Interpretive Statements SINUS TACHYCARDIA MARKED LEFT AXIS DEVIATION [QRS AXIS < -30] SEPTAL MYOCARDIAL INFARCTION , OF INDETERMINATE AGE [40+ ms Q WAVE IN V1/V2] COMPARED TO ECG 06/17/2023 05:59:18 SINUS TACHYCARDIA NOW PRESENT Electronically Signed On 06-17-2023 15:14:51 REHABILITATION MEDICINE PHYSICIAN by Mariluz Peña M.D.
--- NOTE | 2023-06-17 11:15 | PC.NURSE ---
Patient called the nurse to the room regarding right sided chest pain radiating to back. Not reproducible. Not radiating to arm or neck. Per Dr. Win do stat EKG and Troponin. Will continue to monitor.
--- NOTE | 2023-06-17 11:18 | ECG_ITS ---
Measurements Intervals [place] Rate: 92 P: 103 MN: 158 QRS: 214 QRSD: 80 T: 88 QT: 346 QTc: 430 Interpretive Statements SINUS RHYTHM ARM LEADS REVERSED BORDERLINE R WAVE PROGRESSION, ANTERIOR LEADS BORDERLINE T WAVE ABNORMALITY- ANTEROLATERAL LEADS BASELINE ARTIFACT- I, II, III, AVL, AVF, V4-V6 BORDERLINE ECG NO PREVIOUS ECG AVAILABLE FOR COMPARISON Electronically Signed On 06-18-2023 14:18:58 PUPPET [employer] by Charles Ku D.O.
[2023-06-17 11:36] LABS: Glucose Point of Care 231 mg/dl (65-105)
[2023-06-17 12:01] LABS: Troponin I < 0.012 ng/mL (0.000-0.034)
[2023-06-17 14:47] LABS: Glucose Point of Care 370 mg/dl (65-105)
[2023-06-17 15:41] LABS: Glucose Point of Care 350 mg/dl (65-105)
[2023-06-17] MEDS: MEROPENEM 1 GM/NS 100 ML 1 GM/100 ML BAG IVPB (16:24)
[2023-06-17] MEDS: INSULIN GLARGINE (*BKC) 100 UNITS/ML SUB-Q (16:44)
[2023-06-17 18:06] LABS: Glucose Point of Care 388 mg/dl (65-105)
[2023-06-17] MEDS: INSULIN ASPART (*BKC) 100 UNITS/ML SUB-Q (18:28)
[2023-06-17] MEDS: INSULIN ASPART (*BKC) 100 UNITS/ML 10 UNITS SUB-Q (20:04)
[2023-06-17 20:05] LABS: Glucose Point of Care 407 mg/dl (65-105)
[2023-06-17 20:35] LABS: Glucose Point of Care 372 mg/dl (65-105)
[2023-06-17 23:11] LABS: Glucose Point of Care 149 mg/dl (65-105)
[2023-06-18] VITALS (24 sets, daily range): BP systolic 111–146; BP diastolic 59–72; PULSE 88–115; RESP 18–22; TEMP 36.2–37.6; O2SAT 85–99
[2023-06-18 00:28] LABS: Glucose Point of Care 155 mg/dl (65-105)
[2023-06-18 01:54] LABS: Glucose Point of Care 214 mg/dl (65-105)
[2023-06-18] MEDS: IPRATROPIUM BR 0.02% INH SOLN 0.5 MG/2.5 ML VIAL INHALATION ×3 (02:33→14:33)
[2023-06-18] MEDS: LEVALBUTEROL NEB 1.25 MG/3 ML INHALATION ×3 (02:33→14:33)
[2023-06-18] MEDS: ACETAMINOPHEN 325 MG TABLET 650 MG PO (04:09)
[2023-06-18 05:05] LABS: Basophils Absolute Auto 0.1 K/mm3 (0.0-0.1); Basophils Percent Auto 0.6 % (0.2-1.2); Eosinophils Absolute Auto 0.2 K/mm3 (0-0.3); Eosinophils Percent Auto 0.9 % (0-4.4); Hematocrit 29.5 % (42.0-52.0); Hemoglobin 9.1 g/dL (14.0-18.0); Immature Granulocyte Absolute 0.52 K/mm3 (0.00-0.031); Immature Granulocyte Percent A 3.1 % (0-0.5); Lymphocytes Absolute Auto 0.23 K/mm3 (0.9-3.2); Lymphocytes Percent Auto 1.4 % (18.3-44.2); Mean Corpuscular HGB Conc 30.8 g/dl (32-36); Mean Corpuscular Hemoglobin 31.5 pg (26-34); Mean Corpuscular Volume 102.1 fl (80-100); Monocytes Absolute Auto 0.8 K/mm3 (0.1-0.6); Monocytes Percent Auto 4.6 % (2.6-8.5); Neutrophils Absolute Auto 15.1 K/mm3 (1.3-6.7); Neutrophils Percent Auto 89.4 % (45.5-73.1); Platelet Count Result 438 k/mm3 (150-375); Red Blood Count 2.89 M/mm3 (4.6-6.20); Red Cell Distribution Width 14.1 % (11.5-14.5); White Blood Count 16.9 K/mm3 (4.5-10.0)
[2023-06-18 05:23] LABS: Glucose Point of Care 302 mg/dl (65-105)
[2023-06-18 05:28] LABS: Alanine Aminotransferase 22 U/L (6-50); Albumin Level 3.4 g/dL (3.5-5.1); Alkaline Phosphatase 179 U/L (38-126); Anion Gap 17 mmol/L (8-16); Aspartate Amino Transferase 28 U/L (17-59); Bilirubin,Total 1.2 mg/dL (0.2-1.3); Blood Urea Nitrogen 65 mg/dL (9-20); Carbon Dioxide 22 mmol/L (22-30); Chloride 90 mmol/L (98-107); Estimated CRCL calculation 4 ml/min; Estimated Glomerular Filt Rate 3; Glucose 282 mg/dL (65-110); Potassium 3.9 mmol/L (3.4-5.0); Sodium 129 mmol/L (137-145)
[2023-06-18 06:17] LABS: Hepatitis B Surface Anti Res Negative
[2023-06-18 08:14] LABS: Glucose Point of Care 317 mg/dl (65-105)
[2023-06-18] MEDS: SEVELAMER CARBONATE 800 MG TABLET PO ×2 (08:19→11:46)
[2023-06-18] MEDS: calcitrioL 0.25 MCG CAPSULE PO (08:20)
[2023-06-18] MEDS: amLODIPine BESYLATE 5 MG TABLET PO (08:20)
[2023-06-18] MEDS: FUROSEMIDE 80 MG TABLET PO (08:21)
[2023-06-18] MEDS: VITAMIN B CMPLX/VIT C/FOLIC AC 1 CAPSULE 1 CAP PO (08:21)
[2023-06-18] MEDS: FLUCONAZOLE 150 MG TABLET PO (08:21)
[2023-06-18] MEDS: guaiFENesin 12 HR 600 MG TABCR PO (08:21)
[2023-06-18] MEDS: HEPARIN SODIUM 5,000 UNITS/ML VIAL 5000 UNITS SUB-Q (08:21)
[2023-06-18] MEDS: PRAVASTATIN SODIUM 10 MG TABLET PO (08:21)
[2023-06-18] MEDS: INSULIN ASPART (*BKC) 100 UNITS/ML SUB-Q ×2 (08:43→16:42)
--- NOTE | 2023-06-18 10:22 | PC.NURSE ---
Called and left message with outreach educator, patient no longer using his own insulin pump BG was in the 300's-400's. Orders obtained from Dr. Win for morning glucose of 317.
[2023-06-18] MEDS: EPOETIN ALFA-EPBX 10,000 UNITS/ML VIAL 10000 UNITS SUB-Q (11:45)
[2023-06-18 12:19] LABS: Glucose Point of Care 215 mg/dl (65-105)
--- NOTE | 2023-06-18 12:46 | P.PNNP_ITS ---
Progress Note: A&P Assessment and Plan (1) End stage renal disease: Code(s): N18.6 - End stage renal disease Status: Chronic Assessment and Plan: * continue nightly CCPD * follow electrolytes, volume status, and clearance * follows with Dr. Burrows at [facility] (2) Acute respiratory failure with hypoxia: Code(s): J96.01 - Acute respiratory failure with hypoxia Status: Acute Assessment and Plan: * hypoxia noted at home via pulse oximetry * requiring 2 - 3L supplemental oxygen to keep oxygen saturations at goal * presumably due to pneumonia (see #3) * wean oxygen as tolerated with ongoing therapy * follow respiratory status (3) Pneumonia: Code(s): J18.9 - Pneumonia, unspecified organism Status: Acute Assessment and Plan: * as noted by symptoms of cough, SOB, and increased tracheostomy discharge /secreations * follow culture data and WBC * on antibiotics (4) Hypertension: Code(s): I10 - Essential (primary) hypertension Status: Chronic Assessment and Plan: * reasonable control at this time * follow trend of hemodynamics with current medications (5) Anemia: Code(s): D64.9 - Anemia, unspecified Status: Chronic Assessment and Plan: * due to ESRD * follow trend of H/H * on Epogen while hospitalized (6) Type 1 diabetes mellitus: Code(s): E10.9 - Type 1 diabetes mellitus without complications Status: Acute Assessment and Plan: * on insulin pump * follow accu-cheks * further glycemic control per hospitalists Will continue to follow Subjective Date/time seen: 06/18/23 12:46 Interval history: Follow-up for end stage renal disease on peritoneal dialysis. CCPD treatment went reasonably well overnight although he still has the sensation of bloating at times; breathing/respiratory status seems better if not stable at this time; hemodynamically stable; WBC trending down; no other issues/events overnight or earlier this morning. Exam Narrative: General: thin and chronicallly ill-appearing male in NAD Heart: normal S1 and S2; no rub Lungs: coarse breath sounds; no wheezing Abdomen: soft, nontender, nondistended, positive bowel sounds Extremities: no cyanosis or clubbing; no edema Skin: warm and intact Objective Data Vital Signs Vital Signs: Vital Signs Temp Pulse Resp BP Pulse Ox O2 Del Method O2 Flow Rate 06/18/23 12:00 92 20 96 Nasal Cannula 2 06/18/23 10:16 92 20 06/18/23 10:09 91 20 98 Nasal Cannula 3 06/18/23 10:08 91 20 06/18/23 08:00 99 Nasal Cannula 3 06/18/23 08:00 93 06/18/23 07:31 97.7 F 91 22 H 125/65 99 06/18/23 05:49 103 H 06/18/23 04:00 100 06/18/23 04:00 99.6 F 93 20 146/72 H 96 06/18/23 02:50 103 H 20 06/18/23 02:33 108 H 22 H 06/18/23 02:00 98 06/18/23 00:00 88 06/17/23 23:03 98.1 F 92 20 130/63 96 06/17/23 22:00 99 06/17/23 20:00 106 H 06/17/23 20:15 Nasal Cannula 3 06/17/23 20:04 98 20 96 Nasal Cannula 3 06/17/23 20:04 101 H 20 06/17/23 19:56 99 20 06/17/23 19:53 98.8 F 109 H 20 150/77 H
--- NOTE | 2023-06-18 12:46 | PM.PNNEP ---
Progress Note: A&P Assessment and Plan (1) End stage renal disease: Code(s): N18.6 - End stage renal disease Status: Chronic Assessment and Plan: continue nightly CCPD follow electrolytes, volume status, and clearance follows with Dr. Burrows at [facility] (2) Acute respiratory failure with hypoxia: Code(s): J96.01 - Acute respiratory failure with hypoxia Status: Acute Assessment and Plan: hypoxia noted at home via pulse oximetry requiring 2 - 3L supplemental oxygen to keep oxygen saturations at goal presumably due to pneumonia (see #3) wean oxygen as tolerated with ongoing therapy follow respiratory status (3) Pneumonia: Code(s): J18.9 - Pneumonia, unspecified organism Status: Acute Assessment and Plan: as noted by symptoms of cough, SOB, and increased tracheostomy discharge/secreations follow culture data and WBC on antibiotics (4) Hypertension: Code(s): I10 - Essential (primary) hypertension Status: Chronic Assessment and Plan: reasonable control at this time follow trend of hemodynamics with current medications (5) Anemia: Code(s): D64.9 - Anemia, unspecified Status: Chronic Assessment and Plan: due to ESRD follow trend of H/H on Epogen while hospitalized (6) Type 1 diabetes mellitus: Code(s): E10.9 - Type 1 diabetes mellitus without complications Status: Acute Assessment and Plan: on insulin pump follow accu-cheks further glycemic control per hospitalists Will continue to follow Subjective Date/time seen: 06/18/23 12:46 Interval history: Follow-up for end stage renal disease on peritoneal dialysis. CCPD treatment went reasonably well overnight although he still has the sensation of bloating at times; breathing/respiratory status seems better if not stable at this time; hemodynamically stable; WBC trending down; no other issues/events overnight or earlier this morning. Exam Narrative: General: thin and chronicallly ill-appearing male in NAD Heart: normal S1 and S2; no rub Lungs: coarse breath sounds; no wheezing Abdomen: soft, nontender, nondistended, positive bowel sounds Extremities: no cyanosis or clubbing; no edema Skin: warm and intact Objective Data Vital Signs Vital Signs: Vital Signs Temp Pulse Resp BP Pulse Ox O2 Del Method O2 Flow Rate 06/18/23 12:00 92 20 96 Nasal Cannula 2 06/18/23 10:16 92 20 06/18/23 10:09 91 20 98 Nasal Cannula 3 06/18/23 10:08 91 20 06/18/23 08:00 99 Nasal Cannula 3 06/18/23 08:00 93 06/18/23 07:31 97.7 F 91 22 H 125/65 99 06/18/23 05:49 103 H 06/18/23 04:00 100 06/18/23 04:00 99.6 F 93 20 146/72 H 96 06/18/23 02:50 103 H 20 06/18/23 02:33 108 H 22 H 06/18/23 02:00 98 06/18/23 00:00 88 06/17/23 23:03 98.1 F 92 20 130/63 96 06/17/23 22:00 99 06/17/23 20:00 106 H 06/17/23 20:15 Nasal Cannula 3 06/17/23 20:04 98 20 96 Nasal Cannula 3 06/17/23 20:04 101 H 20 06/17/23 19:56 99 20 06/17/23 19:53 98.8 F 109 H 20 150/77 H 99 06/17/23 18:00 113 H 06/17/23 16:00 106 H 16 92 Nasal Cannula 2 06/17/23 16:00 106 H 06/17/23 16:17 98.8 F 106 H 16 124/67 92 Intake/Output Intake/Output: Intake & Output 06/15/23 06/16/23 06/17/23 06/18/23 23:59 23:59 23:59 23:59 Intake Total 870 1750 600 Output Total 0 99 482 Balance 870 1651 118 Meds/Results Medications: Active Medications Generic Name Dose Route Start Last Admin Trade Name Freq PRN Reason Stop Dose Admin Acetaminophen 650 mg 06/16/23 16:21 06/18/23 04:09 Acetaminophen 325 Mg Tablet PO 650 mg Q6H PRN Administration Mild Pain (1-3) or Fever Albuterol 1 puff 06/17/23 00:00 06/18/23 12:18 Albuterol Sul
--- NOTE | 2023-06-18 14:41 | PCRCNOTE ---
Home oxygen evaluation was completed by RT. Pt will need room air at rest and 2L nasal cannula with activity due to low SpO2 levels and shortness of breath with exercise. RN notified of needs and home care company will be set up and notified.
--- NOTE | 2023-06-18 14:43 | HOMEO2EVAL ---
Evaluation was performed at [facility] Home Oxygen Evaluation RC: Home Oxygen (O2) Evaluation Start: 06/18/23 12:32 Freq: ONCE Status: Active Protocol: RPE Activity Type Activity Date Activity User E-sign Co-sign Detail Recorded Client Recorded Date Recorded By Document 06/18/23 14:25 MEAGHAN [id number] 06/18/23 14:37 MEAGHAN Document 06/18/23 14:28 MEAGHAN [id number] 06/18/23 14:38 SANDROG Document 06/18/23 14:30 MEAGHAN [id number] 06/18/23 14:40 KARobin Document 06/18/23 14:32 MEAGHAN [id number] 06/18/23 14:41 KAG 06/18/23 06/18/23 06/18/23 14:25 14:28 14:30 Home O2 Evaluation [Oxygen] -Test Phase Resting Exercise Exercise -Oxygen Delivery Room Air Room Air Nasal Cannula -Oxygen Flow Rate (L/min) 1 -Fraction of Inspired Oxygen (%) 24 [Pulse Oximetry] -Pulse Oximetry (90-100 %) 94 85 L 86 L [Pulse Rate] -Pulse Rate (60-100 beats/min) 103 H 113 H 114 H [Evaluation] -Activity Tolerance Fair Fair [Exercise] -Ambulation Distance (feet) 25 25 -Ambulation Distance (meters) 7.61 7.61 [Comments] -Home Oxygen Evaluation Comments Pt ambulated Pt's SpO2 was from hospital still on the bed to doorway low side with and back, was shortness of complaining of breath. 2L shortness of nasal cannula breath. 1L was applied. nasal cannula was applied. [Charges] -Evaluation Charges O2 Evaluation by 06/18/23 14:32 Home O2 Evaluation [Oxygen] -Test Phase Exercise -Oxygen Delivery Nasal Cannula -Oxygen Flow Rate (L/min) 2 -Fraction of Inspired Oxygen (%) 28 [Pulse Oximetry] -Pulse Oximetry (90-100 %) 91 [Pulse Rate] -Pulse Rate (60-100 beats/min) 115 H [Evaluation] -Activity Tolerance Fair [Exercise] -Ambulation Distance (feet) 25 -Ambulation Distance (meters) 7.61 [Comments] -Home Oxygen Evaluation Comments Pt tolerated 2L nasal cannula well with activity. [Charges] -Evaluation Charges
--- NOTE | 2023-06-18 15:06 | PM.DS ---
DS: Admitting Diagnosis Discharge Date 06/18/23 Admitting Diagnosis sob DS: Discharge Diagnosis Discharge Diagnosis (1) Pneumonia: Code(s): J18.9 - Pneumonia, unspecified organism Status: Acute Assessment and Plan: Patient reports increasing cough, shortness of breath, and increasing output from his tracheostomy site. Continue meropenem and vancomycin initiated 06/16 for broad-spectrum coverage, pending cultures. Check Legionella and pneumococcal antigens as well as mycoplasma IgM. 06/17: Leukocytosis improving, continue current management (2) Acute respiratory failure with hypoxia: Code(s): J96.01 - Acute respiratory failure with hypoxia Status: Acute Assessment and Plan: Patient reports that his SpO2 was 81% on a home pulse oximeter. Currently on 3 L nasal cannula with an SpO2 in the high 90s. Secondary to below; wean oxygen as tolerated. Pulmonary embolism seems less likely by history and physical exam findings. (3) End stage renal disease on dialysis: Code(s): N18.6 - End stage renal disease; Z99.2 - Dependence on renal dialysis Status: Acute Assessment and Plan: Dr. Burrows consulted for peritoneal dialysis orders. He is euvolemic with no electrolyte abnormalities. (4) Chronic obstructive pulmonary disease: Code(s): J44.9 - Chronic obstructive pulmonary disease, unspecified Status: Acute Assessment and Plan: Patient is not certain if he carries this diagnosis; states he was never a smoker. Continue scheduled bronchodilators. Declines steroids at this time though may benefit given wheezing. (5) Type 1 diabetes mellitus: Code(s): E10.9 - Type 1 diabetes mellitus without complications Status: Acute Assessment and Plan: Continue basal insulin via insulin pump. Initiate hypoglycemic protocol. Blood glucose reviewed 06/17 (6) Hypertension: Code(s): I10 - Essential (primary) hypertension Status: Chronic Assessment and Plan: Blood pressures were reviewed and they are stable. Continue antihypertensives and monitor closely. Blood pressures reviewed 06/17 Plan DVT prophylaxis with heparin GI prophylaxis not indicated Code status full code DS: Summary Hospital Course Hospital Course: 53-year-old male with tracheobronchomalacia with chronic tracheostomy, questionable chronic obstructive pulmonary disease (patient unsure if he carries this diagnosis, he is a never smoker), type 1 diabetes mellitus, end stage renal disease on peritoneal dialysis, hypertension, hyperlipidemia, and chronic anemia who presented to the emergency department for evaluation of shortness of breath and green drainage from tracheostomy and was treated for pneumonia. He initially had respiratory failure and required oxygen supplementation. Over the course of a few days, he was able to be weaned to room air and required 2 L with activity only. Of note, he is a brittle diabetic and there was difficulty managing his blood sugars while he was here. Please see above and med rec for details. Patient was discharged in stable condition with close outpatient follow-up. Time Spent with Patient Time attestation: Total time spent providing and/or coordinating discharge services: Exam Narrative: General: No acute distress, alert and oriented per baseline HEENT: Atraumatic, normocephalic, mucous membranes moist CV: Regular rate and rhythm, S1, S2 Lungs: Coarse breath sounds throughout, no wheeze Abdomen: Soft, nontender, nondistended Extremities: Normal to inspection Skin: No rashes noted, no lesions or wounds seen Psych: Euthymic, normal affect DS: Data Data Completed and Pending Labs on day of discharge: Labs from last 24 hours 06/18/23 06/18/23 06/18/23 11:44 08:12 05:21 WBC RBC Hgb Hct MCV MCH MCHC RDW Plt Count MPV Immature Gran % (Auto) Neut % (Auto
[2023-06-18 16:33] LABS: Glucose Point of Care 433 mg/dl (65-105)
[2023-06-18] MEDS: MEROPENEM 1 GM/NS 100 ML 1 GM/100 ML BAG IVPB (16:42)
--- NOTE | 2023-06-19 11:19 | PCCDE ---
Consult received Saturday 06/16 but pt discharged on 06/18 before consult was completed. Pt was admitted with PNA. hx of T1D. Called pt at home today; he denies questions/concerns. He is using the Tandem T-slim insulin pump with Dexcom CGM and bottom precipitator operator is Dr Doran at [facility].
[2023-06-20 11:50] LABS: Mycoplasma IgM Antibody Titer 45 U/mL (<770)
[2023-06-22 07:43] LABS: Hepatitis B DNA PCR Not Detected
== END 2023-06-18 17:39 | disposition home or self-care (01) | DRG 139 ==
LOC: ANHED 12:01 → ANHIMU 15:13
PROVIDERS: Internal Medicine Nephrology; Physician Assistant; Admitting Provider Student in an Organized Health Care Education/Training Program; Emergency Provider Emergency Medicine; Visit Provider Student in an Organized Health Care Education/Training Program
DX: J18.9 Pneumonia, unspecified organism (principal); J96.21 Acute and chronic respiratory failure with hypoxia; N18.6 End stage renal disease; I12.0 Hypertensive chronic kidney disease with stage 5 chronic kidney disease or end stage renal disease; J44.9 Chronic obstructive pulmonary disease, unspecified; D63.1 Anemia in chronic kidney disease; E10.22 Type 1 diabetes mellitus with diabetic chronic kidney disease; E78.5 Hyperlipidemia, unspecified; Z20.822 Contact with and (suspected) exposure to COVID-19; Z99.2 Dependence on renal dialysis; Z93.0 Tracheostomy status; Z98.42 Cataract extraction status, left eye; Z98.41 Cataract extraction status, right eye
CPT/HCPCS: 36415; 71045; 80053; 82607; 82746; 82948; 83735; 84484; 85025; 85027; 86706; 86738; 87040; 87517; 87637; 87641; 90945; 93005; 94618; 94640; 96365; 96367; 96372; 99285; A9270; G0378; G0379; J1644; J1815; J2185; J3370; Q5105

== ENCOUNTER 2024-03-25 10:02 | Emergency (ER) | payer OTHER, SELFPAY ==
--- NOTE | ~2024-03-25 | CT_ITS ---
EXAMINATION: CT abdomen pelvis wo con DATE: 03/25/2024 13:53 INDICATION: Left flank pain. Left upper quadrant abdominal pain. Nausea and vomiting. TECHNIQUE: Computed tomography (CT) of the abdomen and pelvis was performed without intravenous contr ast. Automated exposure control and iterative reconstruction technique were employed. The dose-length product was 174.32 mGy-cm. COMPARISON: chest CT 10/04/17 FINDINGS: The visualized portions of the lung bases demonstrate bronchiectasis, tree-in-bud opacities , and centrilobular nodules involving all visualized lobes. No pleural effusion. No pleural effusion. The heart size is normal. There are coronary artery calcifications. No pericardial effusion. The vik er, spleen, pancreas, and adrenal glands are normal. The gallbladder is distended, likely secondary t o fasting. The kidneys are small with parenchymal calcifications. There are cysts in the kidneys shirlene uring up to 10 mm on the right. There are two 3 mm stones in left kidney. A peritoneal dialysis tyler ter is noted. There are widespread arterial calcifications. There is diverticulosis of the colon with out evidence of diverticulitis. The appendix is normal. There are no pathologically enlarged lymph no grace. There is no free intraperitoneal fluid. Subcutaneous dystrophic calcifications are noted. There is mild lumbar spondylosis. There is mild chronic anterior wedging of T11 vertebral body. IMPRESSION: 1. Bilateral pneumonia, likely chronic. Reviewed, dictated and finalized at location A.
[2024-03-25 10:28] VITALS: BP 121/71; PULSE 92; RESP 17; TEMP 36.4; O2SAT 95
--- NOTE | 2024-03-25 10:32 | ECG_ITS ---
Test Date: 2024-03-25 10:37:12 Measurements Intervals [place] Rate: 89 P: 78 [place]: 163 QRS: -44 QRSD: 78 T: 89 QT: 365 QTc: 445 Interpretive Statements SINUS RHYTHM MARKED LEFT AXIS DEVIATION [QRS AXIS < -30] ANTEROSEPTAL MYOCARDIAL INFARCTION , OF INDETERMINATE AGE [40+ ms Q WAVE IN V1-V4] ABNORMAL ECG No previous ECG available for comparison Electronically Signed On 03-26-2024 07:00:26 CDT by Pradeep Cho M.D.
[2024-03-25 10:56] LABS: Basophils Absolute Auto 0.1 K/mm3 (0.0-0.1); Basophils Percent Auto 0.6 % (0.2-1.2); Eosinophils Percent Auto 0.1 % (0-4.4); Hematocrit 41.4 % (42.0-52.0); Hemoglobin 12.8 g/dL (14.0-18.0); Immature Granulocyte Absolute 0.27 K/mm3 (0.00-0.031); Lymphocytes Absolute Auto 0.94 K/mm3 (0.9-3.2); Mean Corpuscular HGB Conc 30.9 g/dl (32-36); Mean Corpuscular Hemoglobin 30.6 pg (26-34); Monocytes Absolute Auto 1.3 K/mm3 (0.1-0.6); Monocytes Percent Auto 9.5 % (2.6-8.5); Neutrophils Absolute Auto 10.9 K/mm3 (1.3-6.7); Neutrophils Percent Auto 80.8 % (45.5-73.1); Platelet Count Result 531 k/mm3 (150-375); Red Blood Count 4.18 M/mm3 (4.6-6.20); Red Cell Distribution Width 15.5 % (11.5-14.5); White Blood Count 13.5 K/mm3 (4.5-10.0)
[2024-03-25 11:10] LABS: Alanine Aminotransferase 14 U/L (6-50); Albumin Level 4.8 g/dL (3.5-5.1); Alkaline Phosphatase 161 U/L (38-126); Anion Gap 32 mmol/L (4-12); Aspartate Amino Transferase 24 U/L (17-59); Bilirubin,Total 1.1 mg/dL (0.2-1.3); Blood Urea Nitrogen 83 mg/dL (9-20); Calcium 9.8 mg/dL (8.4-10.2); Carbon Dioxide 13 mmol/L (22-30); Chloride 87 mmol/L (98-107); Glucose 251 mg/dL (65-110); Lipase 42 U/L (23-300); Potassium 5.1 mmol/L (3.4-5.0); Sodium 132 mmol/L (137-145)
[2024-03-25 11:16] LABS: Estimated CRCL calculation 2 ml/min; Estimated Glomerular Filt Rate 2
[2024-03-25 11:54] VITALS: BP 130/84; PULSE 86; RESP 14; O2SAT 96
[2024-03-25 13:07] VITALS: BP 131/64; PULSE 85; RESP 16; O2SAT 97
--- NOTE | 2024-03-25 13:24 | ED.NAVMDI ---
HPI - Nausea/Vomiting/Diarrhea General Chief complaint: Nausea/Vomiting/Diarrhea Stated complaint: left flank pain Time Seen by Provider: 03/25/24 12:13 History of Present Illness HPI Narrative: 53 year old male with history of ESRD on peritoneal dialysis presenting with left flank pain. Patient states that for the last week or 2 he has had left flank pain the now goes into his left upper quadrant. Associated with nausea and vomiting. States that he has not tried to eat or drink anything yet today as he continues to be nauseated. He denies chest pain, shortness of breath, lightheadedness, palpitations. States that he skipped his dialysis session last night as he is concerned for dehydration. No fevers or chills. He no longer creates urine. Related Data Home Medications Medication Instructions Recorded Confirmed albuterol sulfate 90 mcg/actuation 1 inhalation inhalation Q4H 08/06/19 09/27/23 aerosol inhaler (ProAir HFA) insulin lispro 100 unit/mL 1 sliding scale dose subcut 08/06/19 09/27/23 subcutaneous solution (Humalog USEASDIRECTD U-100 Insulin) pravastatin 10 mg tablet 10 mg PO DAILY 08/06/19 09/27/23 amlodipine 10 mg tablet 10 mg PO DAILY 08/07/19 09/27/23 subcutaneous insulin pump 11/22/21 06/16/23 blood-glucose meter,continuous #1 ea 01/30/22 06/16/23 (Dexcom G6 [employer]) blood-glucose transmitter (Dexcom #1 ea 01/30/22 06/16/23 G6 Transmitter device) amlodipine 5 mg tablet 5 mg PO DAILY 06/16/23 09/27/23 calcitriol 0.25 mcg capsule 0.25 mcg PO DIRECTED 06/16/23 09/27/23 fluticasone propionate 50 See Rx Instructions .Route 06/16/23 09/27/23 mcg/actuation nasal .COMPLEX PRN Congestion spray,suspension furosemide 80 mg tablet 80 mg PO BID 06/16/23 09/27/23 lactulose 10 gram/15 mL oral 15 ml PO PRN constipation 06/16/23 09/27/23 solution sevelamer carbonate 800 mg tablet 800 mg PO TIDWM 06/16/23 09/27/23 Allergies Allergy/AdvReac Type Severity Reaction Status Date / Time levofloxacin [From Levaquin] Allergy Severe jerking Verified 03/25/24 12:00 motions amoxicillin [From Augmentin] Allergy Swelling Verified 03/25/24 12:00 azithromycin Allergy Swelling Verified 03/25/24 12:00 clavulanic acid Allergy Swelling Verified 03/25/24 12:00 [From Augmentin] doxycycline AdvReac Severe Vomiting Verified 03/25/24 12:00 Review of Systems Review of Systems: All systems reviewed & are unremarkable except as noted in HPI and below PMFSH Past Medical History Medical History Chronic obstructive pulmonary disease Chronic respiratory failure, unspecified whether with hypoxia or hypercapnia End stage renal disease on dialysis Hypertension Nocturnal hypoxemia Tracheobronchomalacia Type 1 diabetes mellitus Surgical History Surgical History History of bilateral cataract extraction History of tracheostomy Status post creation of arteriovenous fistula Family History Family History Father Family history of chronic obstructive pulmonary disease Other Hypertension Social History Social History Social History: Surrogate medical decision maker: Rowena Mendoza, mother. Code status: Full code. Caffeine-soda/tea Smoking status: Never smoker Alcohol intake: never Substance use: never Substance use type: does not use Do You Feel Safe in your Home?: Yes Lack of Transportation: No Lack of Food: Never True Current Housing: I Have Housing Concerned About Future Housing: No Difficulty Paying Gas/Electric Bills: No Difficulty Paying for Meds: No Currently Unemployed: No Education: High School Diploma/GED Difficulty w/ Childcare or Family Care: No Additional living arrangements comments: . Has 4 children. Spiritual c
[2024-03-25] MEDS: ONDANSETRON INJ 4 MG/2 ML VIAL IV PUSH (13:39)
[2024-03-25] MEDS: fentaNYL CITRATE INJ (*CRX) 100 MCG/2 ML VIAL 50 MCG IV PUSH (13:39)
[2024-03-25] MEDS: SODIUM CHLORIDE 0.9% IV 500 ML 999 ML IV CONT (13:40)
[2024-03-25] MEDS: BELLADONNA ALK/PHENOB ELIX 10 ML, MAG HYDROX/ALUMINUM HYD/SIMETH 30 ML, LIDOCAINE HCL 2... PO (15:18)
[2024-03-25] MEDS: ONDANSETRON HCL ODT 4 MG TABLET PO (16:44)
== END 2024-03-25 16:53 | disposition home or self-care (01) ==
PROVIDERS: Emergency Medicine; Emergency Provider Emergency Medicine
DX: R11.2 Nausea with vomiting, unspecified (principal); R10.9 Unspecified abdominal pain; I12.0 Hypertensive chronic kidney disease with stage 5 chronic kidney disease or end stage renal disease; E10.22 Type 1 diabetes mellitus with diabetic chronic kidney disease; N18.6 End stage renal disease; Z99.2 Dependence on renal dialysis; Z79.4 Long term (current) use of insulin; J44.9 Chronic obstructive pulmonary disease, unspecified
CPT/HCPCS: 36415; 74176; 80053; 83690; 85025; 93005; 96361; 96374; 96375; 99284; A9270; J2405; J3010; J7040